=== PATIENT | female | born 1955 | race Caucasian/White ===

== ENCOUNTER 2016-11-12 06:34 | Observation (INO) | payer SELFPAY ==
[2016-11-12] MEDS ORDERED: COZ25 PO (07:23)
[2016-11-12] MEDS ORDERED: HYDROCHLOROT25 MG PO (07:23)
[2016-11-12] MEDS ORDERED: LEVOTHYROXIN75 MCG PO (07:24)
[2016-11-12 07:30] LABS: BASOPHILS 0.3 %; BASOPHILS ABSOLUTE 0.02 10/3/uL (0.0-0.16); EOSINOPHILS 0.5 %; EOSINOPHILS ABSOLUTE 0.04 10/3/uL (0.0-0.53); HEMOGLOBIN 10.6 g/dL (12.0-16.0); IMMATURE GRANULOCYTES 0.1 %; IMMATURE GRANULOCYTES ABSOLUTE 0.01 10/3/uL (0.0-0.11); LYMPHOCYTES 30.2 %; LYMPHOCYTES ABSOLUTE 2.41 10/3/uL (0.67-4.30); MEAN CORPUS HGB CONC 32.1 g/dL (32.0-36.0); MEAN CORPUSCULAR HEMOGLOB 27.4 pg (26.0-34.0); MEAN CORPUSCULAR VOLUME 85.3 fL (80-100); MEAN PLATELET VOLUME 11.1 fL (9.2-13.0); MONOCYTES 6.8 %; MONOCYTES ABSOLUTE 0.54 10/3/uL (0.21-1.20); NEUTROPHILS 62.1 %; NEUTROPHILS ABSOLUTE 4.97 10/3/uL (2.02-8.40); PLATELET COUNT 266 10/3/uL (150-400); RBC DISTRIBUTION WIDTH 16.4 % (12.0-16.0); RED CELL COUNT 3.87 10/6/uL (4.0-5.6)
[2016-11-12 07:32] LABS: MANUAL DIFF NO %
[2016-11-12 07:52] LABS: BUN (BLOOD UREA NITROGEN) 17 MG/DL (6-23); CALCIUM, SERUM 8.5 MG/DL (8.5-10.4); CHLORIDE, SERUM 109 MMOL/L (96-112); CHOL/HDL RATIO(NOT ORDER) 2.8 (0-5); CHOLESTEROL 172 MG/DL (< 200); CO2 (CARBON DIOXIDE) 25 MMOL/L (24-34); CREATININE 0.95 MG/DL (0.55-1.02); GFR AFRICAN AMERICAN 74 ML/MIN (>=60); GFR NON AFRICAN AMERICAN 64 ML/MIN (>=60); GLUCOSE, SERUM 109 MG/DL (60-99); HDL CHOLESTEROL 62 MG/DL (> 49); LDL CHOLESTEROL 92 MG/DL (< 130); NON-HDL CHOLESTEROL 110 MG/DL (< 160); SODIUM, SERUM 143 MMOL/L (135-148); TRIGLYCERIDE 91 MG/DL (< 150)
[2016-11-13] MEDS ORDERED: COREG3 PO (11:44)
[2016-11-13] MEDS ORDERED: K-TABS10 MEQ PO (11:45)
[2016-11-13] MEDS ORDERED: L20 PO (11:46)
== END 2016-11-13 13:25 | disposition home or self-care (01) ==
LOC: CORLMH 06:34 → SSU1 06:35
PROVIDERS: Internal Medicine Cardiovascular Disease
PROC: 4A023N7 Measurement of Cardiac Sampling and Pressure, Left Heart, Percutaneous Approach (ICD-10-PCS; principal; 2016-11-12)
PROC: B2101ZZ Fluoroscopy of Single Coronary Artery using Low Osmolar Contrast (ICD-10-PCS; 2016-11-12)
DX: I25.110 Atherosclerotic heart disease of native coronary artery with unstable angina pectoris (principal); D64.9 Anemia, unspecified; Z87.09 Personal history of other diseases of the respiratory system
CPT/HCPCS: 80048; 80061; 84484; 85025; 93005; 93225; 93226; 93458; 96374; 96375; 96376; 99152; 99153; A9270-GY; C1760; C1769; C1894; G0378; J2250; J2405; J3010; Q9967